=== PATIENT | female | born 1930 | race Caucasian/White ===

== ENCOUNTER 2016-10-13 18:09 | Emergency (ER) | payer OTHER ==
[~2016-10-13] VITALS: Ht 162.6 cm; Wt 70.7 kg
[~2016-10-13 18:09] MED LIST: ELAVIL10 MG PO; HYDROCHLOROTHIA25 MG PO; XANAX0.5 MG PO
[2016-10-13 21:10] LABS: ADD MIUA? YES; BILIRUBIN NEGATIVE; BLOOD SMALL; COLOR YELLOW ((YELLOW)); GLUCOSE (STRIP) NEGATIVE; KETONES NEGATIVE; LEUKOCYTES NEGATIVE; NITRITE NEGATIVE; PROTEIN (STRIP) NEGATIVE; SPECIFIC GRAVITY 1.012 (1.000-1.030); UROBILINOGEN 0.2 MG/DL (0.2-1.0)
[2016-10-13 21:16] LABS: BACTERIA NONE SEEN /HPF; EPITHELIAL CELLS NONE SEEN /HPF; MUCUS TRACE /LPF; RED BLOOD CELLS 0-5 /HPF (0-5); WHITE BLOOD CELLS 0-5 /HPF (0-5)
[2016-10-13] MEDS ORDERED: ZOFRAN ODT8 MG PO (21:21)
[2016-10-13 22:10] VITALS: BP 118/76
== END 2016-10-13 22:11 | disposition home or self-care (01) ==
LOC: EME 18:09
PROVIDERS: Emergency Medicine
DX: R11.0 Nausea (principal); F41.9 Anxiety disorder, unspecified; F32.9 Major depressive disorder, single episode, unspecified; G89.29 Other chronic pain; M54.9 Dorsalgia, unspecified
CPT/HCPCS: 80053; 81003; 85025; 90839; 99281; 99284

== ENCOUNTER 2016-10-23 14:00 | Observation (INO) | payer OTHER ==
[~2016-10-23] VITALS: Ht 160 cm; Wt 68.0 kg
[~2016-10-23 14:00] MED LIST changes: +ZOFRAN ODT8 MG PO
[2016-10-23 14:47] LABS: EOSINOPHIL (%) 4.4 % (0-5); EOSINOPHIL COUNT 0.4 K/uL (0-0.3); HEMATOCRIT 30.9 % (36.0-46.0); IMMATURE GRANULOCYTE (%) 0.4 % (0.0-0.7); IMMATURE GRANULOCYTE COUNT 0.4 K/uL; LYMPHOCYTE COUNT 2.2 K/uL (1.0-2.8); MCH 25.6 PG (29.0-34.0); MCHC 30.7 G/DL (30.0-36.0); MCV 83.3 FL (83-99); MEAN PLAT.VOLUME 10.1 uM^3 (9.5-12.4); MONOCYTE (%) 9.8 % (3-12); MONOCYTE COUNT 0.9 K/uL (0-0.8); NEUTROPHIL (%) 62.6 % (45-76); PLATELET COUNT 427 K/uL (156-360); RBC DIS.WIDTH-CV 14.8 % (11.8-14.6); RBC DIS.WIDTH-SD 43.9 % (39-53); RED BLOOD COUNT 3.71 M/uL (3.80-5.20); WHITE BLOOD COUNT 9.6 K/uL (4.1-10.2)
[2016-10-23 14:59] LABS: CHLORIDE 98 mEq/L (99-109); POTASSIUM 3.2 mEq/L (3.7-5.4); SODIUM 136 mEq/L (136-147)
[2016-10-23 15:01] LABS: GLUCOSE 98 mg/dL (70-99)
[2016-10-23 15:03] LABS: ANION GAP 11 MEQ/L (2-14); TOTAL BILIRUBIN 0.3 mg/dL (0.0-1.0)
[2016-10-23 15:05] LABS: ALKALINE PHOSPHATASE 97 IU/L (3-129); GFR ESTIMATE (CALCULATED) > 59 mL/min/
[2016-10-23 15:06] LABS: UREA NITROGEN (BUN) 9 mg/dL (9-23)
[2016-10-23 15:08] LABS: LIPASE 24 U/L (1.0-51.0)
[2016-10-23 15:09] LABS: TROP-I INTERPRETATION NEGATIVE; TROPONIN-I < 0.01 ng/mL (0.0-0.30)
[2016-10-23 15:50] LABS: ADD MIUA? YES; BILIRUBIN NEGATIVE; BLOOD NEGATIVE; COLOR YELLOW ((YELLOW)); GLUCOSE (STRIP) NEGATIVE; KETONES NEGATIVE; LEUKOCYTES TRACE; NITRITE NEGATIVE; PROTEIN (STRIP) NEGATIVE; SPECIFIC GRAVITY 1.008 (1.000-1.030); UROBILINOGEN 0.2 MG/DL (0.2-1.0)
[2016-10-23 15:58] LABS: BACTERIA NONE SEEN /HPF; EPITHELIAL CELLS RARE /HPF; MUCUS TRACE /LPF; RED BLOOD CELLS 0-5 /HPF (0-5); UCUL ADDED? NO; WHITE BLOOD CELLS 0-5 /HPF (0-5)
[2016-10-23] MEDS ORDERED: XANAX1 MG PO (19:21)
[2016-10-23] MEDS ORDERED: HALOPERIDOL0.5 MG PO (19:22)
[2016-10-23] MEDS ORDERED: ONE DAILY TABL1 EAC1 PO (19:22)
[2016-10-23 23:53] VITALS: BP 155/78
[2016-10-24 01:06] LABS: TROP-I INTERPRETATION NEGATIVE; TROPONIN-I < 0.01 ng/mL (0.0-0.30)
[2016-10-24 03:47] VITALS: BP 136/64
[2016-10-24 06:29] LABS: HEMATOCRIT 30.6 % (36.0-46.0); MCH 26.1 PG (29.0-34.0); MCHC 31.4 G/DL (30.0-36.0); MCV 83.2 FL (83-99); PLATELET COUNT 463 K/uL (156-360); RBC DIS.WIDTH-SD 45.5 % (39-53); RED BLOOD COUNT 3.68 M/uL (3.80-5.20); WHITE BLOOD COUNT 10.3 K/uL (4.1-10.2)
[2016-10-24 06:47] LABS: TROP-I INTERPRETATION NEGATIVE; TROPONIN-I < 0.01 ng/mL (0.0-0.30)
[2016-10-24 06:49] LABS: ANION GAP 10 MEQ/L (2-14); CHLORIDE 100 MEQ/L (99-109); GFR ESTIMATE (CALCULATED) > 59 mL/min/; GLUCOSE 109 mg/dL (70-99); POTASSIUM 3.5 MEQ/L (3.7-5.4); SAMPLE HEMOLYSIS CHECK 0; SAMPLE ICTERIC CHECK 0; SAMPLE LIPEMIA CHECK 0; SODIUM 136 MEQ/L (136-147); UREA NITROGEN (BUN) 11 mg/dL (9-23)
[2016-10-24 07:30] VITALS: BP 115/56
[2016-10-24 11:45] VITALS: BP 134/68
[2016-10-24] MEDS ORDERED: XANAX0.5 MG PO (14:31)
== END 2016-10-24 16:20 | disposition home or self-care (01) ==
LOC: EME → EDBD 14:00 → EME 14:00 → EDOF 20:51 → 5WEST 20:51 → EDOF 20:51 → 5WEST 22:22
PROVIDERS: Emergency Medicine; Hospitalist
DX: R41.0 Disorientation, unspecified (principal); T43.1X5A Adverse effect of monoamine-oxidase-inhibitor antidepressants, initial encounter; F41.9 Anxiety disorder, unspecified
CPT/HCPCS: 70450; 70551; 71010; 80048; 80053; 81003; 82607; 82746; 83605; 83690; 84443; 84484; 85025; 85027; 87040; 99281; 99285; G0378; G8987 GO CJ; G8989 GO CI; J1644

== ENCOUNTER 2016-11-19 15:42 | Inpatient (IN) | payer OTHER ==
[~2016-11-19] VITALS: Ht 165.1 cm; Wt 63.2 kg
[~2016-11-19 15:42] MED LIST changes: +HALOPERIDOL0.5 MG PO; +ONE DAILY TABL1 EAC1 PO; +XANAX1 MG PO
[2016-11-19 16:46] LABS: HEMATOCRIT 28.9 % (36.0-46.0); MCH 23.6 PG (29.0-34.0); MCHC 29.4 G/DL (30.0-36.0); MCV 80.3 FL (83-99); MEAN PLAT.VOLUME 10.1 uM^3 (9.5-12.4); RBC DIS.WIDTH-CV 16.5 % (11.8-14.6); RBC DIS.WIDTH-SD 48.2 % (39-53)
[2016-11-19 16:56] LABS: WHITE BLOOD COUNT 14.9 K/uL (4.1-10.2)
[2016-11-19 16:57] LABS: PLATELET COUNT 609 K/uL (156-360)
[2016-11-19 17:04] LABS: CHLORIDE 96 mEq/L (99-109); POTASSIUM 3.8 mEq/L (3.7-5.4); SODIUM 132 mEq/L (136-147)
[2016-11-19 17:06] LABS: GLUCOSE 119 mg/dL (70-99)
[2016-11-19 17:07] LABS: ANION GAP 14 MEQ/L (2-14); INTER. NORMALIZED RATIO 1.8; PROTHROMBIN TIME 18.7 (9.2-11.2); PTT 36.8 (25-32)
[2016-11-19 17:10] LABS: GFR ESTIMATE (CALCULATED) > 59 mL/min/
[2016-11-19 17:11] LABS: UREA NITROGEN (BUN) 12 mg/dL (9-23)
[2016-11-19] MEDS ORDERED: BUSPAR5 MG PO (21:01)
[2016-11-19] MEDS ORDERED: AVENTYL,PAMELOR10 MG PO (21:01)
[2016-11-19] MEDS ORDERED: ELIQUIS5 MG PO (21:04)
[2016-11-19] MEDS ORDERED: LEVOFLOXACIN250 MG PO (21:06)
[2016-11-19 21:44] LABS: ADD MIUA? YES; BILIRUBIN NEGATIVE; BLOOD NEGATIVE; GLUCOSE (STRIP) NEGATIVE; KETONES NEGATIVE; LEUKOCYTES NEGATIVE; NITRITE NEGATIVE; PROTEIN (STRIP) 30; SPECIFIC GRAVITY 1.023 (1.000-1.030); UROBILINOGEN 0.2 MG/DL (0.2-1.0)
[2016-11-19 22:05] LABS: BACTERIA NONE SEEN /HPF; EPITHELIAL CELLS RARE /HPF; MUCUS 3+ /LPF; RED BLOOD CELLS 0-5 /HPF (0-5); UCUL ADDED? NO; WHITE BLOOD CELLS 0-5 /HPF (0-5)
[2016-11-19 22:08] LABS: TROP-I INTERPRETATION NEGATIVE; TROPONIN-I 0.01 ng/mL (0.0-0.30)
[2016-11-19 22:10] LABS: COLOR DK YELLOW ((YELLOW))
[2016-11-20] VITALS (7 sets, daily range): BP systolic 110–153; BP diastolic 74–84
[2016-11-20 02:35] LABS: INFLUENZA A VIRAL ANTIGEN NEGATIVE; INFLUENZA B VIRAL ANTIGEN NEGATIVE
[2016-11-20 03:24] LABS: EOSINOPHIL (%) 0.5 % (0-5); EOSINOPHIL COUNT 0.1 K/uL (0-0.3); HEMATOCRIT 28.9 % (36.0-46.0); IMMATURE GRANULOCYTE (%) 0.9 % (0.0-0.7); IMMATURE GRANULOCYTE COUNT 0.2 K/uL; INSTRUMENT ABS NEUTROPHIL CT 12.7 K/uL; LYMPHOCYTE COUNT 3.4 K/uL (1.0-2.8); MCH 23.7 PG (29.0-34.0); MCHC 29.8 G/DL (30.0-36.0); MCV 79.6 FL (83-99); MEAN PLAT.VOLUME 10.1 uM^3 (9.5-12.4); MONOCYTE (%) 6.2 % (3-12); MONOCYTE COUNT 1.1 K/uL (0-0.8); NEUTROPHIL (%) 72.8 % (45-76); NEUTROPHIL COUNT 12.7 K/uL (1.8-6.4); PLATELET COUNT 645 K/uL (156-360); RBC DIS.WIDTH-CV 16.8 % (11.8-14.6); RBC DIS.WIDTH-SD 47.8 % (39-53); RED BLOOD COUNT 3.63 M/uL (3.80-5.20); WHITE BLOOD COUNT 17.5 K/uL (4.1-10.2)
[2016-11-20 03:33] LABS: CHLORIDE 99 mEq/L (99-109); INTER. NORMALIZED RATIO 1.6; POTASSIUM 3.8 mEq/L (3.7-5.4); SODIUM 132 mEq/L (136-147)
[2016-11-20 03:35] LABS: GLUCOSE 106 mg/dL (70-99)
[2016-11-20 03:36] LABS: ANION GAP 13 MEQ/L (2-14)
[2016-11-20 03:39] LABS: GFR ESTIMATE (CALCULATED) > 59 mL/min/
[2016-11-20 03:40] LABS: UREA NITROGEN (BUN) 12 mg/dL (9-23)
[2016-11-20 04:30] LABS: PTT 44.1 (25-32)
[2016-11-20 08:16] LABS: INTERNAL CONTROL VALID? YES
[2016-11-20 14:28] LABS: IRON 18 MCG/DL (35-150); SAMPLE HEMOLYSIS CHECK 0; SAMPLE ICTERIC CHECK 0; SAMPLE LIPEMIA CHECK 0
[2016-11-21] VITALS (7 sets, daily range): BP systolic 89–149; BP diastolic 53–110
[2016-11-21 00:49] LABS: POINT-OF-CARE METER ID UU14174225
[2016-11-21 07:38] LABS: BASE EXCESS -1.1 mEq/L (-3 to +3); BICARBONATE 23.5 mEq/L (22-26); CARBOXY HGB 2.6 % (0-5); COMMENTS - BLOOD GASES A+C+; METHEMOGLOBIN 1.6 % (0-1.5); O2 FLOW 12 L/MIN; PCO2 38 mm Hg (35-45); PO2 47 mm Hg (80-100); SITE LR
[2016-11-21 07:39] LABS: DEVICE VM; FI02 50 %
[2016-11-21 07:57] LABS: MCH 23.7 PG (29.0-34.0); MCV 81.7 FL (83-99); PLATELET COUNT 728 K/uL (156-360); RBC DIS.WIDTH-CV 16.8 % (11.8-14.6); RBC DIS.WIDTH-SD 49.7 % (39-53); RED BLOOD COUNT 3.67 M/uL (3.80-5.20); WHITE BLOOD COUNT 20.5 K/uL (4.1-10.2)
[2016-11-21 08:34] LABS: TROP-I INTERPRETATION NEGATIVE; TROPONIN-I 0.01 ng/mL (0.0-0.30)
[2016-11-21 08:52] LABS: INTER. NORMALIZED RATIO 1.7; PROTHROMBIN TIME 17.7 (9.2-11.2)
[2016-11-21 09:00] LABS: ANION GAP 12 MEQ/L (2-14); CHLORIDE 97 MEQ/L (99-109); GFR ESTIMATE (CALCULATED) > 59 mL/min/; GLUCOSE 209 mg/dL (70-99); HDL CHOLESTEROL 13 MG/DL (Desirable>=50); LDL CHOLESTEROL 47 mg/dL (Desirable<100); NON-HDL CHOLESTEROL 74 mg/dL (Desirable<160); POTASSIUM 4.4 MEQ/L (3.7-5.4); SAMPLE HEMOLYSIS CHECK 0; SAMPLE ICTERIC CHECK 0; SAMPLE LIPEMIA CHECK 0; SODIUM 133 MEQ/L (136-147); TOTAL CHOLESTEROL 87 mg/dL (Desirable<200); TRIGLYCERIDES 136 MG/DL (Normal: <150); UREA NITROGEN (BUN) 16 mg/dL (9-23)
[2016-11-21 09:39] LABS: METH RESISTANT S AUREUS PCR NEGATIVE (NEGATIVE)
[2016-11-21 09:40] LABS: PROBE CHECK PASS; SPECIMEN PROCESSING CONTROL PASS
[2016-11-21 10:42] LABS: IRON 19 MCG/DL (35-150)
[2016-11-21 11:30] LABS: FERRITIN 895 NG/ML (10-291)
[2016-11-21 16:17] LABS: ADD MIUA? YES; BILIRUBIN NEGATIVE; BLOOD NEGATIVE; COLOR YELLOW ((YELLOW)); GLUCOSE (STRIP) NEGATIVE; KETONES NEGATIVE; LEUKOCYTES NEGATIVE; NITRITE NEGATIVE; PROTEIN (STRIP) NEGATIVE; SPECIFIC GRAVITY 1.031 (1.000-1.030); UROBILINOGEN 0.2 MG/DL (0.2-1.0)
[2016-11-21 17:54] LABS: BACTERIA RARE /HPF; EPITHELIAL CELLS NONE SEEN /HPF; HYALINE CASTS 0-5 /LPF; MUCUS 3+ /LPF; RED BLOOD CELLS 0-5 /HPF (0-5); UCUL ADDED? NO; WHITE BLOOD CELLS 0-5 /HPF (0-5)
[2016-11-22] VITALS (20 sets, daily range): BP systolic 0–141; BP diastolic 0–81
[2016-11-22 05:41] LABS: HEMATOCRIT 26.5 % (36.0-46.0); MCH 23.3 PG (29.0-34.0); MCHC 28.3 G/DL (30.0-36.0); MCV 82.3 FL (83-99); PLATELET COUNT 561 K/uL (156-360); RBC DIS.WIDTH-CV 17.1 % (11.8-14.6); RBC DIS.WIDTH-SD 50.5 % (39-53); RED BLOOD COUNT 3.22 M/uL (3.80-5.20); WHITE BLOOD COUNT 15.1 K/uL (4.1-10.2)
[2016-11-22 10:36] LABS: ANION GAP 9 MEQ/L (2-14); CHLORIDE 102 MEQ/L (99-109); GFR ESTIMATE (CALCULATED) > 59 mL/min/; GLUCOSE 111 mg/dL (70-99); POTASSIUM 4.2 MEQ/L (3.7-5.4); SAMPLE HEMOLYSIS CHECK 0; SAMPLE ICTERIC CHECK 0; SAMPLE LIPEMIA CHECK 0; SODIUM 135 MEQ/L (136-147); UREA NITROGEN (BUN) 15 mg/dL (9-23)
[2016-11-22 20:16] LABS: HEMATOCRIT 35.6 % (36.0-46.0); MCH 25.1 PG (29.0-34.0); MCHC 30.9 G/DL (30.0-36.0); MCV 81.1 FL (83-99); MEAN PLAT.VOLUME 9.4 uM^3 (9.5-12.4); PLATELET COUNT 544 K/uL (156-360); RBC DIS.WIDTH-CV 16.3 % (11.8-14.6); RBC DIS.WIDTH-SD 47.9 % (39-53); WHITE BLOOD COUNT 16.6 K/uL (4.1-10.2)
[2016-11-22 20:26] LABS: RED BLOOD COUNT 4.39 M/uL (3.80-5.20)
[2016-11-23] VITALS (12 sets, daily range): BP systolic 114–151; BP diastolic 56–94
[2016-11-23 06:21] LABS: HEMATOCRIT 35.5 % (36.0-46.0); MCH 24.8 PG (29.0-34.0); MCHC 30.4 G/DL (30.0-36.0); MCV 81.6 FL (83-99); MEAN PLAT.VOLUME 9.6 uM^3 (9.5-12.4); PLATELET COUNT 546 K/uL (156-360); RBC DIS.WIDTH-CV 16.7 % (11.8-14.6); RBC DIS.WIDTH-SD 49.1 % (39-53); RED BLOOD COUNT 4.35 M/uL (3.80-5.20); WHITE BLOOD COUNT 15.3 K/uL (4.1-10.2)
[2016-11-23 06:49] LABS: ANION GAP 9 MEQ/L (2-14); CHLORIDE 99 MEQ/L (99-109); GFR ESTIMATE (CALCULATED) > 59 mL/min/; GLUCOSE 98 mg/dL (70-99); POTASSIUM 3.7 MEQ/L (3.7-5.4); SAMPLE HEMOLYSIS CHECK 0; SAMPLE ICTERIC CHECK 0; SAMPLE LIPEMIA CHECK 0; SODIUM 134 MEQ/L (136-147); UREA NITROGEN (BUN) 14 mg/dL (9-23)
[2016-11-23 09:40] LABS: BASE EXCESS 3.3 mEq/L (-3 to +3); BICARBONATE 26.8 mEq/L (22-26); CARBOXY HGB 2.3 % (0-5); COMMENTS - BLOOD GASES A+C+; DEVICE NC; METHEMOGLOBIN 1.7 % (0-1.5); O2 FLOW 6 L/MIN; PCO2 36 mm Hg (35-45); PO2 69 mm Hg (80-100); SITE LR; TOTAL RESP RATE 18 resp/min; pH 7.48 (7.35-7.45)
[2016-11-23 14:07] LABS: ADD MIUA? YES; BILIRUBIN NEGATIVE; BLOOD LARGE; COLOR YELLOW ((YELLOW)); GLUCOSE (STRIP) NEGATIVE; KETONES NEGATIVE; LEUKOCYTES NEGATIVE; NITRITE NEGATIVE; PROTEIN (STRIP) 30
[2016-11-23 14:37] LABS: BACTERIA NONE SEEN /HPF; EPITHELIAL CELLS NONE SEEN /HPF; MUCUS NONE SEEN /LPF; RED BLOOD CELLS 0-5 /HPF (0-5); UCUL ADDED? NO; WHITE BLOOD CELLS 0-5 /HPF (0-5)
[2016-11-24] VITALS (8 sets, daily range): BP systolic 102–164; BP diastolic 46–86
[2016-11-24 05:07] LABS: HEMATOCRIT 38.3 % (36.0-46.0); MCH 25.4 PG (29.0-34.0); MCHC 31.3 G/DL (30.0-36.0); MCV 81.1 FL (83-99); MEAN PLAT.VOLUME 9.7 uM^3 (9.5-12.4); PLATELET COUNT 585 K/uL (156-360); RBC DIS.WIDTH-CV 16.8 % (11.8-14.6); RBC DIS.WIDTH-SD 48.4 % (39-53); RED BLOOD COUNT 4.72 M/uL (3.80-5.20); WHITE BLOOD COUNT 16.6 K/uL (4.1-10.2)
[2016-11-24 05:22] LABS: CHLORIDE 99 mEq/L (99-109); POTASSIUM 3.2 mEq/L (3.7-5.4); SODIUM 137 mEq/L (136-147)
[2016-11-24 05:25] LABS: ANION GAP 10 MEQ/L (2-14)
[2016-11-24 05:28] LABS: GFR ESTIMATE (CALCULATED) > 59 mL/min/
[2016-11-24 05:29] LABS: GLUCOSE 162 mg/dL (70-99); UREA NITROGEN (BUN) 12 mg/dL (9-23)
[2016-11-24 11:17] LABS: POC NON-PRINT COM 1 ND
[2016-11-25] VITALS (8 sets, daily range): BP systolic 117–150; BP diastolic 63–88
[2016-11-25 05:56] LABS: HEMATOCRIT 37.3 % (36.0-46.0); MCH 24.8 PG (29.0-34.0); MCHC 29.8 G/DL (30.0-36.0); MCV 83.3 FL (83-99); MEAN PLAT.VOLUME 9.9 uM^3 (9.5-12.4); PLATELET COUNT 568 K/uL (156-360); RBC DIS.WIDTH-CV 17.8 % (11.8-14.6); RBC DIS.WIDTH-SD 51.8 % (39-53); RED BLOOD COUNT 4.48 M/uL (3.80-5.20); WHITE BLOOD COUNT 15.5 K/uL (4.1-10.2)
[2016-11-25 06:40] LABS: ANION GAP 8 MEQ/L (2-14); CHLORIDE 98 MEQ/L (99-109); GFR ESTIMATE (CALCULATED) > 59 mL/min/; GLUCOSE 152 mg/dL (70-99); POTASSIUM 3.4 MEQ/L (3.7-5.4); SAMPLE HEMOLYSIS CHECK 0; SAMPLE ICTERIC CHECK 0; SAMPLE LIPEMIA CHECK 0; SODIUM 137 MEQ/L (136-147); UREA NITROGEN (BUN) 17 mg/dL (9-23)
[2016-11-25 07:46] LABS: MAGNESIUM 1.8 mg/dl (1.3-2.7)
[2016-11-25 11:22] LABS: DIGOXIN 0.7 ng/mL (0.8-2.0)
[2016-11-26 03:22] VITALS: BP 137/66
[2016-11-26 05:49] LABS: HEMATOCRIT 35.8 % (36.0-46.0); MCH 24.9 PG (29.0-34.0); MCHC 29.9 G/DL (30.0-36.0); MCV 83.3 FL (83-99); MEAN PLAT.VOLUME 10.1 uM^3 (9.5-12.4); PLATELET COUNT 499 K/uL (156-360); RBC DIS.WIDTH-CV 18.2 % (11.8-14.6); RBC DIS.WIDTH-SD 52.5 % (39-53); WHITE BLOOD COUNT 15.5 K/uL (4.1-10.2)
[2016-11-26 08:39] VITALS: BP 156/71
[2016-11-26 09:39] LABS: CHLORIDE 100 MEQ/L (99-109); GFR ESTIMATE (CALCULATED) > 59 mL/min/; GLUCOSE 124 mg/dL (70-99); POTASSIUM 3.4 MEQ/L (3.7-5.4); SODIUM 136 MEQ/L (136-147); UREA NITROGEN (BUN) 19 mg/dL (9-23)
[2016-11-26 09:49] LABS: ANION GAP 8 MEQ/L (2-14)
[2016-11-26 12:41] VITALS: BP 138/84
[2016-11-26 15:33] LABS: INTER. NORMALIZED RATIO 1.6; PROTHROMBIN TIME 16.2 (9.2-11.2)
[2016-11-26 16:18] VITALS: BP 144/63
[2016-11-26 20:00] VITALS: BP 154/69
[2016-11-27] VITALS: BP 133/65
[2016-11-27 04:00] VITALS: BP 164/70
[2016-11-27 07:24] LABS: INTER. NORMALIZED RATIO 1.6; PROTHROMBIN TIME 16.6 (9.2-11.2)
[2016-11-27 07:38] LABS: HEMATOCRIT 36.8 % (36.0-46.0); MCH 25.1 PG (29.0-34.0); MCHC 29.6 G/DL (30.0-36.0); MCV 84.6 FL (83-99); MEAN PLAT.VOLUME 10.3 uM^3 (9.5-12.4); PLATELET COUNT 530 K/uL (156-360); RBC DIS.WIDTH-CV 18.4 % (11.8-14.6); RED BLOOD COUNT 4.35 M/uL (3.80-5.20); WHITE BLOOD COUNT 15.2 K/uL (4.1-10.2)
[2016-11-27 09:15] VITALS: BP 171/91
[2016-11-27 13:07] VITALS: BP 166/68
[2016-11-27 13:26] LABS: ANION GAP 10 MEQ/L (2-14); CHLORIDE 102 MEQ/L (99-109); GFR ESTIMATE (CALCULATED) > 59 mL/min/; GLUCOSE 155 mg/dL (70-99); POTASSIUM 3.9 MEQ/L (3.7-5.4); SAMPLE HEMOLYSIS CHECK 0; SAMPLE ICTERIC CHECK 0; SAMPLE LIPEMIA CHECK 0; SODIUM 141 MEQ/L (136-147); UREA NITROGEN (BUN) 23 mg/dL (9-23)
[2016-11-27 13:27] LABS: TROP-I INTERPRETATION NEGATIVE; TROPONIN-I 0.01 ng/mL (0.0-0.30)
[2016-11-27 15:19] VITALS: BP 127/67
[2016-11-27 19:47] VITALS: BP 140/74
[2016-11-28 00:28] VITALS: BP 135/74
[2016-11-28 03:59] VITALS: BP 157/74
[2016-11-28 07:55] VITALS: BP 162/79
[2016-11-28 08:12] LABS: INTER. NORMALIZED RATIO 2.3
[2016-11-28 08:18] LABS: PROTHROMBIN TIME 24.1 (9.2-11.2)
[2016-11-28 08:30] LABS: MCH 25.2 PG (29.0-34.0); MCHC 29.2 G/DL (30.0-36.0); MCV 86.3 FL (83-99); MEAN PLAT.VOLUME 10.3 uM^3 (9.5-12.4); PLATELET COUNT 460 K/uL (156-360); RBC DIS.WIDTH-CV 18.4 % (11.8-14.6); RBC DIS.WIDTH-SD 57.5 % (39-53); RED BLOOD COUNT 4.17 M/uL (3.80-5.20); WHITE BLOOD COUNT 15.1 K/uL (4.1-10.2)
[2016-11-28 08:55] LABS: ALKALINE PHOSPHATASE 98 IU/L (3-129); ANION GAP 6 MEQ/L (2-14); CHLORIDE 102 MEQ/L (99-109); GFR ESTIMATE (CALCULATED) > 59 mL/min/; POTASSIUM 3.9 MEQ/L (3.7-5.4); SAMPLE HEMOLYSIS CHECK 0; SAMPLE ICTERIC CHECK 0; SAMPLE LIPEMIA CHECK 0; SODIUM 141 MEQ/L (136-147); TOTAL BILIRUBIN 0.4 MG/DL (0.0-1.0); UREA NITROGEN (BUN) 24 mg/dL (9-23)
[2016-11-28 08:57] LABS: GLUCOSE 108 mg/dL (70-99)
[2016-11-28 11:20] VITALS: BP 130/63
[2016-11-28] MEDS ORDERED: LEVSIN-SL0.125 MG SL (14:04)
[2016-11-28] MEDS ORDERED: ATIVAN INTE2 MG/1 ML PO (14:04)
[2016-11-28] MEDS ORDERED: MORPHINE CON20 MG/M1 PO (14:04)
== END 2016-11-28 17:35 | disposition hospice, home (50) | DRG 175 ==
LOC: EME → EDBD 15:42 → EME 15:42 → EDOF 23:06 → 5SOUTH 23:06 → 4WEST 23:06 → 5SOUTH 11-20 00:08 → 4WEST 11-21 07:57 → 5SOUTH 11-25 20:07
PROVIDERS: Emergency Medicine; Hospitalist; Internal Medicine; Nurse Practitioner Adult Health; Physician Assistant Medical
PROC: 30233N1 Transfusion of Nonautologous Red Blood Cells into Peripheral Vein, Percutaneous Approach (ICD-10-PCS; principal; 2016-11-22)
DX: I26.99 Other pulmonary embolism without acute cor pulmonale (principal); A41.9 Sepsis, unspecified organism; J69.0 Pneumonitis due to inhalation of food and vomit; J96.01 Acute respiratory failure with hypoxia; I82.401 Acute embolism and thrombosis of unspecified deep veins of right lower extremity; R41.82 Altered mental status, unspecified; F41.1 Generalized anxiety disorder; I48.91 Unspecified atrial fibrillation; D50.9 Iron deficiency anemia, unspecified; I08.1 Rheumatic disorders of both mitral and tricuspid valves; I70.0 Atherosclerosis of aorta; I27.2 Other secondary pulmonary hypertension; I95.9 Hypotension, unspecified; E87.6 Hypokalemia; Z66 Do not resuscitate; Z51.5 Encounter for palliative care; F32.9 Major depressive disorder, single episode, unspecified; K21.9 Gastro-esophageal reflux disease without esophagitis; H91.93 Unspecified hearing loss, bilateral; Z86.718 Personal history of other venous thrombosis and embolism; Z79.01 Long term (current) use of anticoagulants
CPT/HCPCS: 36600; 70450; 71010; 71020; 71275; 80048; 80053; 80061; 80162; 80202; 81003; 82272; 82607; 82728; 82746; 82803; 82948; 83540; 83605; 83735; 83880; 84443; 84466; 84484; 85025; 85027; 85610; 85730; 86850; 86900; 86901; 86920; 87040; 87070; 87205; 87449; 87502; 87641; 92610 GN; 93005; 93306; 93970; 94640; 94640 76; 94760; 94799; 97530 GP; 99202; 99281; 99285; C9113; J0456; J0692; J1160; J1650; J1756; J1940; J2405; J3370; J3475; J3480; J7040; J7050; P9016